=== PATIENT | female | born 1985 | race Two or more races ===

== ENCOUNTER 2021-12-08 10:06 | Outpatient (CLI) | payer OTHER | END 2021-12-08 10:18 | disposition home or self-care (01) | LOC: MAMO-SONO 10:06 | PROVIDERS: ATTEND Obstetrics & Gynecology | DX: N60.12 Diffuse cystic mastopathy of left breast (principal); N60.11 Diffuse cystic mastopathy of right breast ==

== ENCOUNTER 2023-10-19 09:06 | Outpatient (CLI) | payer OTHER | END 2023-10-19 09:30 | disposition home or self-care (01) | LOC: SONOGRAMA 09:06 | PROVIDERS: ATTEND Obstetrics & Gynecology | DX: Q51.28 Other and unspecified doubling of uterus (principal) ==

== ENCOUNTER 2023-11-28 11:35 | Outpatient (CLI) | payer OTHER | END 2023-11-28 11:53 | disposition home or self-care (01) | LOC: MRI 11:35 | PROVIDERS: ATTEND Obstetrics & Gynecology | DX: Q51.21 Complete doubling of uterus (principal) | CPT/HCPCS: 72197 ==

== ENCOUNTER 2024-09-18 09:50 | Outpatient (CLI) | payer OTHER | END 2024-09-18 11:00 | disposition home or self-care (01) | LOC: NST 09:50 | PROVIDERS: ATTEND Obstetrics & Gynecology | DX: Z34.83 Encounter for supervision of other normal pregnancy, third trimester (principal) ==

== ENCOUNTER 2024-09-19 09:34 | Outpatient (CLI) | payer OTHER ==
[2024-09-20] MEDS ORDERED: PRENATAL TABLE1 EAC1 PO (16:23)
[2024-09-20] MEDS ORDERED: SYNTHROID50 MCG PO (16:23)
[2024-09-20] MEDS ORDERED: NIFEDIPINE20 MG PO (16:23)
== END 2024-09-19 11:18 | disposition home or self-care (01) ==
LOC: NST 09:34
PROVIDERS: ATTEND Obstetrics & Gynecology
DX: Z34.83 Encounter for supervision of other normal pregnancy, third trimester (principal)

== ENCOUNTER 2024-09-20 16:21 | Outpatient (CLI) | payer OTHER ==
[2024-09-20 15:46] VITALS: BP 121/63
[2024-09-20] MEDS ORDERED: SYNTHROID50 MCG PO (16:23)
[2024-09-20] MEDS ORDERED: NIFEDIPINE20 MG PO (16:23)
[2024-09-20] MEDS ORDERED: PRENATAL TABLE1 EAC1 PO (16:23)
[2024-09-20 18:29] VITALS: BP 121/63
== END 2024-09-20 18:34 | disposition home or self-care (01) ==
LOC: OBS/DEL 16:21
PROVIDERS: ATTEND Obstetrics & Gynecology
DX: O26.893 Other specified pregnancy related conditions, third trimester (principal); Z3A.31 31 weeks gestation of pregnancy